=== PATIENT | female | born 1955 | race Caucasian/White ===

== ENCOUNTER → 2016-04-09 14:43 | Outpatient (CLI) | payer OTHER ==
[2015-07-01 12:08] VITALS: BMI 27.8
[~2016-04-09 14:43] MED LIST: ADVAIR 100/501 DISK INH; ALDACTONE25 MG PO; BAYER CHEWABLE81 MG PO; BENADRYL25 MG PO; COREG 3.1253.125 MG PO; CYMBALTA60 MG PO; LANTUS SOL100 UNIT/1 SC; LISINOPRIL5 MG PO; LYRICA100 MG PO; NEURONTIN600 MG PO; NITROSTAT0.4 MG SL; PHENERGAN25 M1 PO; PLAVIX75 MG PO; PRAVACHOL40 MG PO; PROTONIX40 MG PO; STOOL SOFTENER100 M1 PO; ULTRAM50 MG PO
== END | disposition home or self-care (01) ==
LOC: D.CT 14:43
DX: I70.212 Atherosclerosis of native arteries of extremities with intermittent claudication, left leg (principal)

== ENCOUNTER 2016-04-11 12:03 | Observation (INO) | payer OTHER ==
[~2016-04-11] VITALS: Ht 154.9 cm; Wt 74.7 kg
--- NOTE | ~2016-04-11 | HEMODYNAMI ---
PATIENT:JALEESA ADAM MEDICAL RECORD: [id number] : 53 [id number] ADMISSION DATE: 04/11/16 Generatedon:04/12/201614:09 Patient name: JALEESA ADAM Patient #: [id number] SSN: : 1955 Date of study: 04/12/2016 Page: Of Hemodynamic Procedure Report Patient Data Patient Demographics Procedure consent was obtained First Name: JALEESA Gender: Female Last Name: KIA : 1955 [facility] Initial: MALATHI Age: 60 year(s) Patient #: [id number] Race: Additional ID: [id number] Contact details Address: [address] [place] [address] rd State: [place] City: [place] Zip code: [address] Past Medical History History of disease Date Diagnosis Comments CAD Diabetes Allergies Allergen Reaction Date Comments Reported Other allergy 04/22/2015 Dilaudid Admission Admission Data Admission Date: 04/11/2016 Admission Time: 14:11 Room #: D.2114 Lab Results Lab Result Date: 04/12/2016 Lab Result Time: 0:00 Biochemistry Name Units Result Min Max BUN mg/dl 26 --(----)-* 7 18 Creatinine mg/dl 1 --(--*-)-- 0.6 1.3 CBC Name Units Result Min Max Hemoglobin g/dl 13.8 --(*---)-- 13.5 17.5 Procedure Procedure Types Cath Procedure Diagnostic Procedure LHC LHC w/Coronaries Peripheral Cath Diagnostic Procedure Cath Peripheral Four Vessel Arteriogram Procedure Description Procedure Date Procedure Date: 04/12/2016 Procedure Start Time: 13:51 Procedure End Time: 14:08 Procedure Staff Name Function Elijah Marvin MD Performing Physician Roxane Birch RT Scrub Mariama Hou RN Nurse Carolin Rutherford RT Monitor Tico Gomez RT Monitor Procedure Data Cath Procedure Fluoroscopy Diagnostic fluoroscopy Total fluoroscopy Time: 2.5 time: 2.5 min min Diagnostic fluoroscopy Total fluoroscopy dose: 144 dose: 144 mGy mGy Contrast Material Contrast Material Type Amount (ml) Isovue 300 108 Entry Location Entry Primary Successful Side Size Upsize Upsize Entry Closure Succes sful Closure Location (Fr) 1 (Fr) 2 (Fr) Remarks Device Remarks Femoral Right 5 Fr Exoseal artery Diagnostic catheters Device Type Used For End Catheter Placement Cordis 5Fr JL 4.0 Left Coronary Catheter (MP) Angiography Cordis 5Fr 3DRC Catheter Right Coronary (MP) Angiography Cordis 5Fr Pigtail LV Angiography Catheter (MP) Procedure Complications No complications Procedure Medications Medication Administration Route Dosage Oxygen NC 2 l/min Heparin Flush Bag added to field 2 bags (1000units/500ml NS) Lidocaine 2% added to field 20 Versed I.V. 1 mg Fentanyl I.V. 50 mcg Hemodynamics Rest HGB: 13.8 (g/dl) Heart Rate: 77 (bpm) Pressure Samples Time Site Value (mmHg) Purpose Heart Use Rate(bpm) 14:01 LV 116/19,22 EDP 76 14:02 AO 93/47(65) Pullback 48 Gradients Valve Time Site Site 2 Mean SEP/DFP Peak To Heart Use 1 (mmHg) (sec/min) Peak Rate (mmHg) (bpm) Aortic 14:02 LV AO 28 13 48 93/47(65) Calculations Valve P-P Mean Valve Index Valve Source Name Gradient Area Flow (cm2) Aortic 28 28 Snapshots Pre Cath Intra NCS Post Cath Vital Signs Time Heart Resp SPO2 NIBP (mmHg) Rhythm Pain Sedation Rate (ipm) (%) Status Level (bpm) 13:33:50 75 13 95 Measuring NSR 0 (11) 10(A) , No pain 13:34:22 87 19 95 137/72(103) NSR 0 (11) 10(A) , No pain 13:38:40 77 13 94 118/65(112) NSR 0 (11) 10(A) , No pain 13:43:40 86 15 95 Measuring NSR 0 (11) 10(A) , No pain 13:43:56 77 15 95 119/65(87) NSR 0 (11) 10(A) , No pain 13:48:18 80 16 95 114/59(88) NSR 0 (11) 9(A) , No pain 13:52:26 90 16 95 115/76(111) NSR 0 (11) 9(A) , No pain 13:56:38 83 16 97 115/69(106) NSR 0 (11) 9(A) , No pain 14:00:52 86 14 98 132/71(91) NSR 0 (11) 9(A) , No pain 14:05:14 85 15 98 107/56(92) NSR 0 (11) 9(A) , No pain Medications Time Medication Route Dose Verified Delivered Reason Notes Effec tiveness by by 13:32:10 Oxygen NC 2 Elijah Kenyonca Per l/min St. Kalyan Hou RN physician 13:32:19 Heparin Flush added 2 Eiljah Nava used for Bag to bags [facility] procedure (1000units/500ml field MD EASLEY NS) 13:32:27 Lidocaine 2% added 20ml Elijah Nvaa used for to vial [facility] procedure field MD EASLEY 13:46:07 Versed I.V. 1 mg Elijah Kenyonca for St. Kalyan Hou RN sedation 13:46:14 Fentanyl I.V. 50 Elijah Marieecca for mcg [address] Kalyan Hou RN sedation Procedure Log Time Note 13:20:27 Roxane Birch RT(R) sent for patient. Start room use. 13:30:03 Diagnostic Cath Status : Elective 13:30:34 Time tracking: Regular hours 13:30:38 Plan of Care:Hemodynamics will remain stable., Cardiac rhythm will remain stable., Comfort level will be maintained., Respiratory function will remain adequate., Patient/ family verbilizes understanding of procedure., Procedure tolerated without complication., Recovers from procedure without complications.. 13:30:54 Patient received from Med II to CCL 1 Alert and oriented. Tansferred to table in Supine position. 13:30:55 Warm blankets applied, and jeannine hugger turned on for patient comfort. 13:30:55 Correct patient and procedure confirmed by team. 13:30:57 Signed procedure consent form obtained from patient. 13:32:01 Vital chart was started 13:32:10 Oxygen 2 l/min NC was given by Mariama Hou RN; Per physician; 13:32:19 Heparin Flush Bag (1000units/500ml NS) 2 bags added to field was given by Elijah Marvin MD; used for procedure; 13:32:27 Lidocaine 2% 20ml vial added to field was given by Elijah Marvin MD; used for procedure; 13:33:48 ECG and BP/O2 sat monitors applied to patient. 13:35:10 Baseline sample Acquired. 13:35:29 Rhythm: sinus rhythm 13:35:30 Full Disclosure recording started 13:36:08 H&P Date Dictated: 04/11/2016 Within 30 days and on chart., H&P Addendum completed by physician on day of procedure. (MUST COMPLETE FOR ALL OUTPATIENTS). 13:36:10 Pre-op teaching completed and patient verbalized understanding. 13:36:11 Pre-procedure instructions explained to patient. 13:36:14 Family in waiting room. 13:36:15 Patient NPO since Midnight. 13:36:22 Is the patient allergic to Iodine/contrast media? No. 13:36:23 Was the patient premedicated? No 13:40:26 Is patient on blood thinner?No 13:40:29 Patient diabetic? Yes. 13:40:33 If diabetic: On Metformin? No 13:40:36 Previous problem with sedation/anesthesia? No ? 13:40:40 Snore? Yes 13:40:42 Sleep apnea? No 13:40:42 Deviated septum? No 13:40:43 Opens mouth fully? Yes 13:40:45 Sticks out tongue? No 13:40:48 Airway obstruction? No ? 13:40:55 Dentures? No ? 13:40:59 Pre procedure: right dorsailis pedis pulse 1+ Palpable, but thready & weak; easily obliterated 13:41:07 Patient pain scale 0/10 ?. 13:41:48 Lab Result : BUN 26 mg/dl 13:41:48 Lab Result : Creatinine 1 mg/dl 13:41:48 Lab Result : Hemoglobin 13.8 g/dl 13:41:52 Lab results completed and on chart. 13:41:56 Right groin area was prepped with chlora-prep and draped in sterile fashion 13:41:57 Alarms reviewed by R. N. 13:41:58 Sharps counted by scrub and verified by R.N. 13:42:28 Use device set Femoral Dx 13:42:29 Acist Syringe opened to sterile field. 13:42:29 Bag Decanter opened to sterile field. 13:42:30 Medline Cath Pack opened to sterile field. 13:42:31 Terumo 5Fr Hutchinson Sheath opened to sterile field. 13:42:31 St Blue 260cm J .035 wire opened to sterile field. 13:42:32 Acist Hand Control opened to sterile field. 13:42:33 Acist Manifold opened to sterile field. 13:42:33 Cordis Infinity 5Fr Multipack catheter opened to sterile field. 13:45:35 Physician arrived 13:45:35 --------ALL STOP TIME OUT------ 13:45:36 Final Timeout: patient, procedure, and site verified with staff and physician. All members of the team are in agreement. 13:45:38 Right groin site verified by team. 13:45:41 Physical assessment completed. ASA score P 2 - A patient with mild systemic disease as per Elijah Marvin MD. 13:45:44 Sedation plan: IV Moderate Sedation Versed, Fentanyl 13:46:07 Versed 1 mg I.V. was given by Mariama Hou RN; for sedation; 13:46:14 Fentanyl 50 mcg I.V. was given by Mariama Hou RN; for sedation; 13:50:32 Procedure started. 13:51:33 Local anesthetic to right femoral artery with Lidocaine 2% by Elijah Marvin MD.INITIAL ACCESS ONLY 13:51:41 A 5 Fr sheath was inserted into the Right Femoral artery 13:53:21 A Cordis 5Fr JL 4.0 Catheter (MP) was advanced over the wire and used for Left Coronary Angiography. 13:56:13 LCA angiography performed. 13:57:00 Catheter removed. 13:57:16 A Cordis 5Fr 3DRC Catheter (MP) was advanced over the wire and used for Right Coronary Angiography. 13:57:54 RCA angiography performed. 13:58:43 Bilateral carotid angiography performed. 13:59:26 Procedure type changed to Cath procedure, Diagnostic procedure, LHC, LHC w/Coronaries, Peripheral Cath Diagnostic Procedure, Cath Peripheral, Four Vessel Arteriogram 14:00:06 Catheter removed. 14:00:14 A Cordis 5Fr Pigtail Catheter (MP) was advanced over the wire and used for LV Angiography. 14:01:27 LV angiography performed. 14:01:41 LV gram done using GASCA 14:01:45 Injector settings: Ml/sec: 5, Volume: 15, 14:01:47 LV hemodynamics recorded. 14:01:56 Catheter removed. 14:02:12 EF : 55 % 14:02:36 Catheter removed. 14:03:58 Cordis 5Fr Exoseal opened to sterile field. 14:04:07 Sheath removed intact; hemostasis achieved with Exoseal to the Right Femoral artery. 14:04:09 Procedure ended.(Physican Out) 14:06:30 Fluoroscopy time 02.50 minutes. 14:06:39 Flurop Dose total: 144 14:06:39 Fluoroscopy dose: 144 mGy 14:06:55 Contrast amount:Isovue 300 108ml. 14:06:56 Sharps counted by scrub and verified by R.N. 14:06:59 Insertion/operative site no bleeding no hematoma. 14:07:02 Post-op/insertion site Right Femoral artery dressed using a 4 x 4 and Tegaderm. 14:07:09 Post right femoral artery:stable 14:07:11 Post Procedure Pulses reassessed and unchanged 14:07:23 Post procedure: right dorsailis pedis pulse 1+ Palpable, but thready & weak; easily obliterated. 14:07:34 Post procedure rhythm: sinus rhythm 14:07:36 Post procedure instruction explained to patient.Patient verbalizes understanding. 14:08:01 Procedure and supply charges have been captured, reviewed, submitted and are correct. 14:08:09 Procedure Complication : No complications 14:08:12 Vital chart was stopped 14:08:13 See physician's report for complete and final results. 14:08:15 Report given to PCU. 14:08:18 Patient transfered to PCU with Bed. 14:08:20 Procedure ended. 14:08:20 Full Disclosure recording stopped 14:08:25 End room use (Document Last) Device Usage Item Name Manufacture Quantity Catalog Hospital Part Current Minimal Lot # / Number Charge Number Stock Stock Serial# Code Acist Acist 1 14947 [id number] [id number] [id number] 20 Syringe Medical Systems Inc Bag Microtek 1 2002S 009017 11513 347356 5 Giftly Inc. Medline Cardinal 1 [id number] 864644 41153 428354 5 3D Hubs [facility] 1 [id number] 163256 990585 [address] Blue St Blue 1 894255 557569 572778 784222 30 260cm J .035 wire Acist Acist 1 35084 707192 723707 347077 5 Hand Medical Control Systems Inc Acist Acist 1 55376 639232 901862 816177 5 Manifold Medical Systems Inc Cordis Cardinal 1 [id number] 192137 40154 011701 30 [facility] 5Fr Multipack catheter Cordis Cardinal 1 [id number] 5 5Fr JL Health 4.0 Catheter (MP) Cordis Cardinal 1 [id number] 5 5Fr 3DRC Health Catheter (MP) Cordis Cardinal 1 976323 5 5Fr Health Pigtail Catheter (MP) Cordis Cardinal 1 EX500 560291 841318 317285 10 5Fr Health Exoseal Signature Audit [place] Stage Time Signature Unsigned Intra-Procedure 04/12/2016 Tico Gomez 2:09:02 PM RT(R) Signatures Monitor : Carolin Rutherford RT Signature : Date : Time : Monitor : Tico Gomez RT Signature : Date : Time : [address] [address]
[~2016-04-11 12:03] MED LIST changes: -BENADRYL25 MG PO; -LYRICA100 MG PO; -PHENERGAN25 M1 PO; -STOOL SOFTENER100 M1 PO; -ULTRAM50 MG PO
[2016-04-11 12:40] LABS: BASOPHILS 0.3 % (0.0-2.0); EOSINOPHILS 3.2 % (0-7); HEMATOCRIT 40.4 % (36.0-48.0); HEMOGLOBIN 13.9 g/dL (12-16); IMMATURE GRANULOCYTES 0.4 % (0-5); LYMPHOCYTES 23.7 % (15-50); MCHC 34.4 g/dL (31.0-37.0); MCV 87.1 fL (80.0-100.0); MEAN PLATELET VOLUME 9.8 fL (7.4-10.4); MONOCYTES 14.6 % (2-11); NEUTROPHILS 57.8 % (40-80); PLATELET COUNT 184 10x3/uL (130-400); RBC 4.64 10x6/uL (4.00-5.40); RDW 13.5 % (11.5-14.5); WBC 7.6 10x3/uL (4.8-10.8)
[2016-04-11 12:54] LABS: ALBUMIN 3.9 g/dL (3.4-5.0); ALKALINE PHOSPHATASE 119 U/L (46-116); ALT (SGPT) 26 U/L (10-68); BILIRUBIN - TOTAL 0.28 mg/dL (0.2-1.3); CALC OSMOLALITY 283 mosm/kg (275-300); CALCIUM 9.6 mg/dL (8.5-10.1); CARBON DIOXIDE 24.9 mmol/L (21.0-32.0); CHLORIDE - SERUM 100 mmol/L (98-107); CREATININE - SERUM 0.9 mg/dL (0.6-1.3); POTASSIUM - SERUM 4.7 mmol/L (3.5-5.1); PROTEIN - SERUM 7.9 g/dL (6.4-8.2); SODIUM 137 mmol/L (136-145); UREA NITROGEN 21 mg/dL (7-18); eGFR NON AFRICAN AMERICAN 67 mL/min (90-120)
[2016-04-11 12:58] LABS: GLUCOSE 220 mg/dL (74-106)
[2016-04-11 13:04] LABS: CREATINE KINASE 132 UL (21-215)
[2016-04-11 13:05] LABS: TROPONIN-I < 0.017 ng/mL (0.000-0.060)
--- NOTE | 2016-04-11 14:51 | NUR ---
ARRIVE TO ROOM VIA BED FROM ER. REPORT FROM EUSEBIA HOLGUIN FROM ER. ALERT AND ORIENTED X4. COMPLAINS OF SYNCOPAL EPISODES STARTING TODAY. DENIES SOB OR PAIN AT THIS TIME. VITAL SIGNS STABLE. AMBULATES TO BED FROM STRETCHER GAIT STEADY. IV LT HAND SL. REFUSE SCDs. AMBULATORY. CONTINUE ADMISSION PROCESS. BED LOCKED AND LOW. CALL LIGHT IN REACH. TWO SIDERAILS UP.
[2016-04-11] MEDS ORDERED: LYRICA100 MG PO (15:01)
[2016-04-11] MEDS ORDERED: PHENERGAN25 M1 PO (15:02)
[2016-04-11 16:03] VITALS: BP 141/66
[2016-04-11 18:21] VITALS: BP 133/64; Ht 154.9 cm; Wt 74.7 kg
--- NOTE | 2016-04-11 18:28 | NUR ---
ALERT AND ORIENTED X4. RESTING IN BED. AT BEDSIDE. COMPLAINS OF LT LOWER LEG PAIN. ORDER NORCO 10 Q4PRN PER . CONSENTS FOR PER DIEM RN SIGNED ON CHART. SINUS RHYTHM 80bpm ON TELEMETRY. CONTINUE PLAN OF CARE AND SAFETY PRECAUTIONS. PREPARE SHIFT CHANGE REPORT.
[2016-04-11 20:00] VITALS: BP 114/54
--- NOTE | 2016-04-11 23:30 | NUR ---
INITIAL ROUNDS COMPLETED AT 1914 HRS. PT ASKNG FOR PAIN MEDS. NORCO 10/ GIVEN AT 0 HRS FOR C/O L LEG PAIN. NEG JEANETH'S. PT STATES THEY DID A CT ON IT BUT SHE DIDN'T KNOW THE RESULTS. AT 1954 PT STATED SHE WAS HAVING SEVERE CP 8/10. BP 166/81. HR 81 SR. NITRO 0.4MG SL GIVEN. REASSESSED AT 2004 AND PT STATED CP NOW 5/10 AND EASING OFF. BP 119/58. RECHECKED AT 2034 AND PT STATED NO CP. ASSESSMENT COMPLETED AT 2054 HRS. VSS. SR PER CM HR 86. IV TO LFA SL. LUNGS CTA. PM FSBS 346. PT ALSO STATED LANYTUS ORDER WRONG. DR DONAHUE NOTIFIED AT 2154 HRS. INFORMED OF PT'S BS OF 346 AND CORRECT LANTUS USAGE. NEW ORDERS RECEIVED AND NOTED. PM MEDS GIVEN. SNACK SERVED. PT AWARE NPO AFTER MIDNIGHT FOR AM C. PT CURRENTLY WATCHING TV. DENIES ANY DISCOMFORT. WILL CONTINUE TO MONITOR. SR UP X2, CALL LIGHT WITHIN REACH.
[2016-04-12] VITALS: BP 111/54
--- NOTE | 2016-04-12 01:37 | NUR ---
NORCO 10/325 PO GIVEN FOR C/O L LEG PAIN. WILL CONTINUE TO MONITOR.
[2016-04-12 04:00] VITALS: BP 102/56
--- NOTE | 2016-04-12 04:14 | NUR ---
PT RESTING WITH EYES CLOSED. RESP EVEN AND REGULAR. SR UP X2, CALL LIGHT WITHIN REACH.
[2016-04-12 05:46] LABS: BASOPHILS 0.3 % (0.0-2.0); EOSINOPHILS 5.2 % (0-7); HEMATOCRIT 39.8 % (36.0-48.0); HEMOGLOBIN 13.8 g/dL (12-16); IMMATURE GRANULOCYTES 0.3 % (0-5); LYMPHOCYTES 31.5 % (15-50); MCH 30.5 pg (26.0-34.0); MCHC 34.7 g/dL (31.0-37.0); MCV 88.1 fL (80.0-100.0); MEAN PLATELET VOLUME 9.6 fL (7.4-10.4); MONOCYTES 12.8 % (2-11); NEUTROPHILS 49.9 % (40-80); PLATELET COUNT 177 10x3/uL (130-400); RBC 4.52 10x6/uL (4.00-5.40); RDW 13.4 % (11.5-14.5); WBC 6.7 10x3/uL (4.8-10.8)
[2016-04-12 06:15] LABS: ANION GAP 13.3 mmol/L (8-16); CALCIUM 8.8 mg/dL (8.5-10.1); CARBON DIOXIDE 28.1 mmol/L (21.0-32.0); POTASSIUM - SERUM 4.4 mmol/L (3.5-5.1)
--- NOTE | 2016-04-12 06:15 | NUR ---
VSS THROUGHUOT NIGHT. NO CP SINCE 1999 HRS. PT STATED NORCO HELPED L LEG PAIN. AM FSBS 294. INSULIN HELD PT NPO FOR AM LHC. NEEDS MET; WILL CONITNUE TO MONITOR.
--- NOTE | 2016-04-12 07:41 | HP ---
PATIENT: JALEESA ADAM MEDICAL RECORD: [id number] ACCOUNT: [id number] LOCATION:[address] : [birth year] ADMISSION DATE: 04/11/16 HISTORY AND PHYSICAL EXAMINATION Admission History and Physical HISTORY OF PRESENT ILLNESS: A 60-year-old female, presented to the Emergency Room with acute onset of chest pain, 8/10, substernal, crushing with reported brief loss of consciousness. PAST MEDICAL HISTORY: Significant for extensive cardiovascular disease as well as peripheral vascular disease, also history of hypertension, insulin-dependent diabetes mellitus, angina, multiple surgeries including revascularization of the lower extremity, multiple stents, cholecystectomy with complications, hysterectomy. ALLERGIES: No reported drug allergies. HOME MEDICATIONS: Listed as: Aspirin 81 mg daily, Coreg 3.125 mg b.i.d. She had been on Plavix, but she has been off of Plavix since her last cardiology appointment. She is also on Lyrica 100 mg twice daily, pravastatin 40 mg daily, Aldactone 25 mg daily, Nitrostat p.r.n., lisinopril 5 mg daily, Protonix 40 mg daily, Lantus 80 units at bedtime, ____ NovoLog 30 units 3 times a day with meals, Cymbalta 60 mg daily, Plavix as listed, but she reports she has not taken it since her last cardiology appointment. Her high tension tester is Dr. Mina Marvin. She has a primary care physician in [place]. [facility] per cardiology request. FAMILY HISTORY: Significant for extensive cardiovascular disease in multiple family members. REVIEW OF SYSTEMS: GENERAL: No acute change in weight or appetite. HEENT: No cephalgia, visual changes, tinnitus, epistaxis or dysphagia. CARDIOVASCULAR: Acute onset of crushing substernal chest pain with reported syncopal event. PULMONARY: Denies hemoptysis, denies night sweats. GASTROINTESTINAL: Denies hematemesis, hematochezia or melena. GENITOURINARY: Denies dysuria, denies change in frequency. MUSCULOSKELETAL: No acute changes. ENDOCRINE: Denies polyuria, polydipsia, or polyphagia. PHYSICAL EXAMINATION: VITAL SIGNS: Temperature 98.9, blood pressure is 137/81, heart rate 90, respirations 15, O2 sats 92% room air. GENERAL: Alert, oriented, presently comfortable after receiving nitroglycerin and supplemental oxygen. HEENT: Head is normocephalic, atraumatic. Eyes: Pupils are equally round and reactive to light and accommodation. Extraocular muscles are intact. Conjunctiva was not injected. Ears: Canals patent, TMs are intact. Nose: Nares patent without drainage. Throat: No erythema, no exudates. NECK: Supple. No lymphadenopathy. HEART: Regular rate and rhythm. No S3, S4, no rub. LUNGS: Clear to auscultation bilaterally. Breathing is nonlabored. HISTORY AND PHYSICAL [id number] JALEESA ADAM ABDOMEN: Soft, nontender. Bowel sounds all 4 quadrants. EXTREMITIES: Present times 4, no edema. NEUROLOGICAL: Cranial nerves II-XII grossly intact. No focal deficits. SKIN: Warm, dry. No rash. LABORATORY DATA: EKG shows normal sinus rhythm with some minimal nonspecific ST changes. CBC: White count 7.6, hemoglobin 13.9, hematocrit 40.4, platelets 184. Chemistry shows sodium of 137, potassium 4.7, chloride 100, bicarbonate 24.9, BUN 21, creatinine 0.9, glucose 220. Alkaline phosphatase 119, AST 15, ALT 26. CK is 132. CK-MB is 1.0. Troponin less than 0.017. Chest x-ray, no acute cardiopulmonary disease. ASSESSMENT AND PLAN: 1. Unstable angina with reported syncopal event. The patient is admitted. Cardiology consulted, Dr. Rajan. Serial enzymes. 2. Diabetes mellitus. We will continue home medications. 3. Hypertension. Continue home medications. 4. Depression. Continue home medications. 5. Hyperlipidemia. Continue pravastatin. Supportive care. TRANSINT:[id number] Voice Confirmation ID: [id number] DOCUMENT ID: [id number] ARACELI DONAHUE DO at 0741 CC: [id number] DICTATION DATE: 04/11/16 1427 TONGUE AND GROOVE MACHINE SETTER: 04/11/[address] [facility] [address] [place] [address]
[2016-04-12 08:16] VITALS: BP 113/57
[2016-04-12 11:37] VITALS: BP 121/52
--- NOTE | 2016-04-12 12:50 | NUR ---
ALERT AND ORIENTED X4. RESTING IN BED. DENIES SOB. COMPLAINS OF LT LEG PAIN. PAIN MANAGEMENT CONTINUED. PRE-OP COMPLETE FOR RUBY RAILS DEVELOPER. CONSENTS SIGNED ON CHART. AT BEDSIDE. SINUS RHYTHM 75bpm ON TELEMETRY. CONTINUE PLAN OF CARE. BED LOCKED AND LOW. CALL LIGHT IN REACH.
--- NOTE | 2016-04-12 13:25 | NUR ---
TAKEN TO [place] VIA BED. CONTINUE PLAN OF CARE AND SAFETY PRECAUTIONS.
--- NOTE | 2016-04-12 14:30 | NUR ---
ARRIVE BACK TO ROOM VIA BED FROM INDUSTRIAL DESIGN ENGINEER. SEDATED. AROUSES EASILY TO STIMULI. AT BEDSIDE. CLEAN CATH. REMAIN FLAT UNTIL 1630. SINUS RHYTHM 68bpm ON TELEMETRY. PULSE +2 BILATERALLY. RT GROIN DRESSING CLEAN DRY INTACT. FREE FROM BLEEDING. FREE FROM HEMATOMA. LT HAND IV INFUSING NS ORDERED. BP-106/62, R-16, O2-92% 4L NC. INCREASE O2 TO 5L NC. O2 SAT IMPROVE 98%. CONTINUE TO MONITOR. BED LOCKED AND LOW. CALL LIGHT IN REACH. TWO SIDERAILS UP.
[2016-04-12 15:53] VITALS: BP 127/70
--- NOTE | 2016-04-12 16:35 | NUR ---
ALERT AND ORIENTED X4. 2HOURS COMPLETE. HOB 30 DEGREES. NO BLEEDING. NO HEMATOMA. AT BEDSIDE. CONTINUE PLAN OF CARE. SINUS RHYTHM 86bpm. BP-117/72. DENIES SOB. EXPRESSES CONCERNS REGUARDING LT LEG PAIN. CONTINUE PAIN MANAGEMENT. BED LOCKED AND LOW. CALL LIGHT IN REACH. TWO SIDERAILS UP.
[2016-04-12 20:00] VITALS: BP 122/48
[2016-04-13] VITALS: BP 108/47
[2016-04-13 05:38] LABS: BASOPHILS 0.3 % (0.0-2.0); EOSINOPHILS 4.8 % (0-7); HEMATOCRIT 38.3 % (36.0-48.0); HEMOGLOBIN 12.5 g/dL (12-16); IMMATURE GRANULOCYTES 0.4 % (0-5); LYMPHOCYTES 28.3 % (15-50); MCH 29.1 pg (26.0-34.0); MCHC 32.6 g/dL (31.0-37.0); MCV 89.3 fL (80.0-100.0); MEAN PLATELET VOLUME 9.8 fL (7.4-10.4); MONOCYTES 10.8 % (2-11); NEUTROPHILS 55.4 % (40-80); PLATELET COUNT 166 10x3/uL (130-400); RBC 4.29 10x6/uL (4.00-5.40); RDW 13.4 % (11.5-14.5); WBC 7.8 10x3/uL (4.8-10.8)
[2016-04-13 06:01] LABS: ANION GAP 12.4 mmol/L (8-16); CALCIUM 8.5 mg/dL (8.5-10.1); CREATININE - SERUM 0.9 mg/dL (0.6-1.3); POTASSIUM - SERUM 4.4 mmol/L (3.5-5.1)
[2016-04-13 07:58] VITALS: BP 150/73
--- NOTE | 2016-04-13 09:30 | OP ---
PATIENT NAME: JALEESA ADAM MEDICAL RECORD: [id number] :53 LOCATION:D.M2 D.2114 ADMISSION DATE:04/11/16 SURGEON: CHELY SOTO MD DATE OF OPERATION: 04/12/2016 PROCEDURE: Left heart catheterization, selective coronary angiography, right femoral artery approach. CATHETERS: A 5-Czech sheath, 5/4 left and right Sadia, 5/4 pig. The procedure was well tolerated. The patient returned to patterson, sheath removed. ExoSeal device placed. FINDINGS: Left ventriculography in the 30-degree GASCA view: Normal wall motion and normal systolic function. CORONARY ANATOMY: Left main: Left main is free of disease. LAD: LAD in the area of previous stenting is widely patent. [place] vessel shows no progression of [place]wale[place] disease. CIRCUMFLEX: The area of previous stenting is widely patent. No progression of nanwalek disease. RIGHT CORONARY ARTERY: Dominant artery, gives rise to PDA, free of disease. The area of previous stenting is widely patent. IMPRESSION: Normal systolic function. No restenosis. No evidence of progression of nanwalek disease. TRANSINT:[id number] Voice Confirmation ID: [id number] DOCUMENT ID: [id number] CHELY SOTO MD at 0930 CC: [id number] DICTATION DATE: 04/12/16 140 CRISIS INTERVENTION SPECIALIST: 04/12/164 ADM IN [facility] [id number] [place] [address]
--- NOTE | 2016-04-13 09:30 | OP ---
PATIENT NAME: JALEESA ADAM MEDICAL RECORD: [id number] :53 LOCATION:D.M2 D.2114 ADMISSION DATE:04/11/16 SURGEON: CHELY SOTO MD DATE OF OPERATION: 04/12/2016 PROCEDURE: Four vessel arteriography. DESCRIPTION: Using indwelling sheath, both common carotids were cannulated selectively. Findings are as follows: RIGHT: Right common carotid smooth-walled vessel without significant stenosis. Right external carotid smooth-walled vessels without significant stenosis. Right internal carotid smooth-walled vessel without significant stenosis. LEFT: Left common carotid smooth-walled vessel, no significant stenosis. Left internal carotid smooth-walled vessel without significant stenosis. Left external carotid smooth-walled vessel without significant stenosis. IMPRESSION: No significant stenosis. TRANSINT:[id number] Voice Confirmation ID: [id number] DOCUMENT ID: [id number] CHELY SOTO MD at 0930 CC: [id number] DICTATION DATE: 04/12/16 1409 SOCIAL MEDIA EDITOR: 04/12/16 2155 ADM IN [facility] [address] [id number]
[2016-04-13 12:18] VITALS: BP 129/55
[2016-04-13 16:16] VITALS: BP 118/59
[2016-04-13] MEDS ORDERED: ULTRAM50 MG PO (17:27)
--- NOTE | 2016-04-13 18:44 | NUR ---
ALERT AND ORIENTED X4. DC LT HAND IV TIP INTACT. DISCHARGE INSTRUCTIONS GIVEN VERBALLY AND WRITTEN. DISCHARGE PAPERS SIGNED ON CHART. WRITTEN SCRIPT FOR ULTRAM NOT SIGNED BY . CALLED SADDLE AND HARNESS MAKER PHYSICIAN. INSTRUCTED TO TELL PATIENT TO COME BY OFFICE IN THE MORNING. ESCORT TO RIDE VIA WHEELCHAIR. REMAIN FREE FROM INJURY.
[2016-04-23] MEDS ORDERED: STOOL SOFTENER100 M1 PO (10:34)
[2016-04-23] MEDS ORDERED: BENADRYL25 MG PO (10:35)
== END 2016-04-13 18:57 | disposition home or self-care (01) ==
LOC: D.ER 12:03 → D.M2 14:11 → OBSVTIME 14:11 → D.M2 14:11 → D.SDCHOLD 04-13 15:18 → D.M2 04-13 18:57
PROVIDERS: Family Medicine; Internal Medicine Cardiovascular Disease; ADMIT Family Medicine
DX: I25.110 Atherosclerotic heart disease of native coronary artery with unstable angina pectoris (principal); Z95.5 Presence of coronary angioplasty implant and graft; R55 Syncope and collapse; E78.5 Hyperlipidemia, unspecified; I10 Essential (primary) hypertension; I73.9 Peripheral vascular disease, unspecified; E11.9 Type 2 diabetes mellitus without complications; Z79.4 Long term (current) use of insulin; F32.9 Major depressive disorder, single episode, unspecified

== ENCOUNTER 2016-04-26 05:06 | Day surgery (SDC) | payer OTHER ==
[2016-04-23 12:25] LABS: APPEARANCE CLEAR (CLEAR); BILIRUBIN NEGATIVE (NEGATIVE); COLOR YELLOW (YELLOW); GLUCOSE 1000 mg/dL (NEGATIVE); KETONE NEGATIVE (NEGATIVE); LEUKOCYTE ESTERASE TRACE (NEGATIVE); NITRITE NEGATIVE (NEGATIVE); PROTEIN TRACE mg/dL (NEGATIVE); UROBILINOGEN NORMAL (NORMAL)
[2016-04-23 12:26] LABS: BACTERIA MODERATE /hpf (NONE SEEN); EPITHELIAL CELLS 0-5 /hpf (0-5); MUCUS <1+ /lpf (NONE SEEN); RED CELLS - URINE 0-5 /hpf (0-5); WHITE CELLS - URINE 0-5 /hpf (0-5); YEAST OCC /hpf (NONE SEEN)
[2016-04-23 12:29] LABS: HEMATOCRIT 41.4 % (36.0-48.0); HEMOGLOBIN 14.2 g/dL (12-16); MCH 29.8 pg (26.0-34.0); MCHC 34.3 g/dL (31.0-37.0); MCV 86.8 fL (80.0-100.0); MEAN PLATELET VOLUME 9.8 fL (7.4-10.4); RBC 4.77 10x6/uL (4.00-5.40); RDW 13.4 % (11.5-14.5)
[2016-04-23 12:37] LABS: APTT 23.7 SECONDS (22.8-39.4); INR 1.03 (0.85-1.17); PROTIME 13.3 SECONDS (11.6-15.0)
[2016-04-23 12:44] LABS: ALKALINE PHOSPHATASE 121 U/L (46-116); ALT (SGPT) 26 U/L (10-68); BILIRUBIN - TOTAL 0.37 mg/dL (0.2-1.3); CALC OSMOLALITY 283 mosm/kg (275-300); CALCIUM 9.5 mg/dL (8.5-10.1); CHLORIDE - SERUM 102 mmol/L (98-107); CREATININE - SERUM 0.8 mg/dL (0.6-1.3); GLUCOSE 178 mg/dL (74-106); POTASSIUM - SERUM 4.5 mmol/L (3.5-5.1); PROTEIN - SERUM 8.2 g/dL (6.4-8.2); SODIUM 139 mmol/L (136-145); UREA NITROGEN 19 mg/dL (7-18); eGFR NON AFRICAN AMERICAN 77 mL/min (90-120)
--- NOTE | 2016-04-24 13:38 | HP ---
PATIENT: JALEESA ADAM [facility] MEDICAL RECORD: [id number] ACCOUNT: [id number] LOCATION[facility] : 54 ADMISSION DATE: 04/26/16 HISTORY AND PHYSICAL EXAMINATION NameJALEESA ADAM (60yo, F) ID# [id number]. Date/Time04/16/2016 10:91BHYGN1954Va [facility] Dept.NPP[facility] ClinicProviderEDRAMO TURPIN MDInsuranceMed Primary: HUMANA - GOLD (MEDICARE REPLACEMENT/ADVANTAGE - PFFS) Insurance # : [id number] Referring Provider Name : RAYMUNDO ZELAYA Employer Name : [employer]\\ Prescription: ARGSDIR - Member is eligible. Chief Complaint atherosclerosis of arteries of extremities Patient's Care Team Referring Provider (): RAYMUNDO ZELAYA: [address] [place] [phone], , Primary Care Provider: PETRA MALIK DO: [address] [address], , Transport Technician: CHELY SOTO MD Patient's Pharmacies [facility] (ERX): [address] [facility] [id number], , Vitals BP:122/82 sitting R arm 04/16/2016 10:26 am 100/80 sitting R arm 04/16/2016 10:27 amHR:88R/R 04/16/2016 10:27 amHt:5 ft 1 in 04/16/2016 10:26 amWt:154 lbs 04/16/2016 10:24 amBMI:29.1 04/16/2016 10:26 amAllergies Reviewed Allergies ADHESIVE TAPEMedications Reviewed Medications Aspir-81 81 mg tablet,delayed release Take 1 tablet(s) every day by oral route.04/14/16 enteredKat Wilsoncarvedilol 3.125 mg yqcmkb77/11/17 [facility] CenterLANDBAYDULoxetine 60 mg capsule,delayed puetxqr27/26/16 filledReCyte Therapeuticsgabapentin 600 mg axvzup80/11/16 filledArgGroupsite SystemsLantus 100 unit/mL subcutaneous ysqwagzj07/23/17 filledArgLANDBAYlisinopril 5 mg eczbet26/11/16 filledArgGroupsite SystemsLyrica 100 mg purwdqs21/01/17 filledArgLANDBAYnitroglycerin 0.4 mg sublingual /17/16 filledReCyte TherapeuticsNovoLIN N InnoLet 100 unit/mL (3 mL) subcutaneous insulin pen Inject by subcutaneous route.04/16/16 enteredCindy Brownpravastatin 40 mg jqwnki59/18/16 filledReCyte Therapeuticspromethazine 25 mg irmxjc62/18/17 filledReCyte Therapeuticsrosuvastatin 10 mg gpmdgi96/21/16 filledArgLANDBAYspironolactone 25 mg thohbt20/18/16 filledHonor[facility] Medical CenterLANDBAYProblems Reviewed Problems Atherosclerosis of arteries of the extremities - Onset: 04/16/2016 Peripheral arterial occlusive disease - Onset: 04/14/2016 Family History Discussed Family History Brother- Heart diseaseMother- Heart diseaseFather- Heart diseaseSister- Heart diseaseSocial History Discussed Social History Cardiology HISTORY AND PHYSICAL [id number] JALEESA ADAM Family history of heart disease?: Y Smoking Status: Former smoker High Cholesterol: Y High blood pressure: Y Exercise level: None Overweight: Y Diabetes: Y General stress level: Low Alcohol intake: Occasional Diet: Regular Surgical History Reviewed Surgical History Other - PTCA/stent Removal of gallbladder Hysterectomy/revise vagina Angioplasty - left leg coronary artery stenting, INGREDIENT HANDLER History (not configured) Obstetric History Reviewed Obstetric History Past Medical History Discussed Past Medical History Angina: Y Angioplasty (balloon): Y Coronary Artery Disease: Y Diabetes: Y Heart Disease: Y Heart stents: Y Hyperlipidemia: Y Hypertension: Y Mitral Valve Prolapse: Y Pain in legs when walking: Y Peripheral Vascular Disease (PVD): Y Documents for Discussion N/A Screening None recorded. HPI Peripheral Vascular Disease Reported by patient. Location: calf; foot; "left leg hurts 1/2 block" Quality: cramping; burning; aching; weakness Severity: interferes with normal activity Onset/Timing: intermittent Context: during walking Alleviating Factors: rest claudication lower extremities bilaterally left greater than the right ROS Patient reports exercise intolerance but reports no fever, no night sweats, no significant weight gain, and no significant weight loss; severe claudication left leg approximately 33 feet. She reports muscle aches, muscle weakness, and HISTORY AND PHYSICAL [id number] JALEESA ADAM arthralgias/joint pain but reports no back pain and no swelling in the extremities. She reports no dry eyes, no irritation, and no vision change. She reports no difficulty hearing and no ear pain. She reports no frequent nosebleeds and no nose/sinus proble ms. She reports no sore throat, no bleeding gums, no snoring, no dry mouth, no mouth ulcers, no oral abnormalities, and no teeth problems. She reports no jugular vein distension and no swollen glands. She reports no chest pain, no arm pain on exertion, no shortness of breath when walking, no shortness of breath when lying down, no palpitations, and no known heart murmur. She reports no cough, no wheezing, no shortness of breath, and no coughing up blood. She reports no abdominal pain, no vomiting, normal a p petite, no diarrhea, not vomiting blood, no nausea, and no constipation. She reports no incontinence, no difficulty urinating, no hematuria, and no increased frequency. She reports no abnormal mole, no jaundice, and no rashes. She reports no loss of consc i ousness, no weakness, no numbness, no seizures, no dizziness, and no headaches. She reports no depression, no sleep disturbances, feeling safe in relationship, and no alcohol abuse. She reports no fatigue. She reports no swollen glands and no bruising. Sh e reports no runny nose, no sinus pressure, no itching, no hives, and no frequent sneezing. ROS as noted in the HPI Physical Exam Patient is a 60-year-old female. Constitutional: General Appearance well nourished and developed and healthy-appearing. Level of Distress NAD. Ambulation ambulating normally. Cardiovascular: Apical Impulse not displaced or no thrill. Heart Auscultation normal s1 and s2; no murmurs, rubs, or gallops; and RRR. Arterial Pulses no abdominal aorta bruits, femoral bruits, or popliteal bruits; popliteal not palpable (left leg) and dorsalis pedis not palpable (left leg); and 2+ bilateral, carotid 2+ bilateral, and femoral 2+ bilateral; good dorsalis pedis pulse on the right. Edema no edema or varicosities. Lungs: Repiratory Effort no d yspnea. Percussion no hyperresonance or dullness or flatness. Auscultation no wheezing, rhonchi, or rales / crackles and breathing sounds normal, good air movement, and CTA except as noted. Abdomen: Bowl Sounds normal. Inspection and Palpation no tenderne ss, guarding, masses, or rebound tenderness and soft and non-distended. Liver non-tender and no hepatomegaly. Spleen non-tender and no splenomegaly. Hernia none palpable. Musculoskeletal System: Gait And Stance normal gait and stance. Digits and Nails normal nails and no cyanosis. Joints, Bones, and Muscles limited ROM. Neurologic: Cranial Nerves grossly intact. Reflexes DTRs 2+ bilaterally throughout. Sensation grossly intact. Lymph Nodes: Lymph Nodes no cervical LAD, supraclavicular LAD, axillary LAD, or inguinal LAD. Eyes: Lids and Conjunctivae no discharge or pallor and non-injected. Pupils PERRLA. Cornea grossly intact. EOM EOMI. Lens clear. Sclera non-icteric. Neck: Neck no masses, enlarged lymph nodes, or carotid bruits and supple and trachea midline. Thyroid no enlargement or nodules and non-tender. Skin: Inspection and Palpation no rash, lesions, ulcers, jaundice, or abnormal nevi. HISTORY AND PHYSICAL [id number] JALEESA ADAM Assessment / Plan 1. Intermittent claudication due to atherosclerosis of [place] artery of limb I70.213: Atherosclerosis of [place] arteries of extremities with intermittent claudication, bilateral legs 2. Coronary arteriosclerosis in [place] artery I25.10: Atherosclerotic heart disease of [place] coronary artery without angina pectoris Discussion Notes severe claudication left lower extremity Roughly 1 year ago underwent atherectomy and drug coated balloon She now has recurrent restenosis bilaterally left greater than the right. I have discussed her disease process with her and her in detail as well as the alternative methods of treatment. We discussed endovascular and open repair of her left superficial femoral artery including the expected benefits and risk which i ncluded bleeding, infection, stroke, loss of limb and .she understands all the above and wishes to proceed with planned surgery. Return to Office Deonna Turpin MD for Surgery at [facility] SCHEDULE on 04/26/2016 at 07:30 AM DEONNA TURPIN MD at 1338 CC: [id number] DICTATION DATE: 04/16/15 1030 FRONT MAKER: DANYA 04/20/16 [address] [place] [id number] [place] [address]
[~2016-04-26] VITALS: Ht 154.9 cm; Wt 69.9 kg
[~2016-04-26 05:06] MED LIST changes: +BENADRYL25 MG PO; +LYRICA100 MG PO; +PHENERGAN25 M1 PO; +STOOL SOFTENER100 M1 PO; +ULTRAM50 MG PO
[2016-04-26 05:38] VITALS: BP 121/66; Ht 154.9 cm; Wt 69.9 kg
[2016-04-26] MEDS ORDERED: PLAVIX75 MG PO (09:52)
--- NOTE | 2016-04-26 10:01 | NUR ---
1000 NSR RATE 92 BP 138/60 CHEST PAIN IS DENIED. RIJ WITH DRESSING CDI NS AND 2 AMPS OF BICARB INFUSING ON PUMP AT 125 CC/HR. O2 AT 2 LITERS SAT 99% ANGIOSEAL R/GROIN CDI NO BLEEDING NO HEMATOMA NOTED. INSTURCTED PATIENT TO KEEP RLE STRAIGHT WITH HEAD FLAT ON PILLOW. CRITICORE CATH IN PLACE WITH CLEAR YELLOW URINE OUTPUT 66 WILL MONITOR
--- NOTE | 2016-04-26 10:21 | NUR ---
PATIENT COMPLAINS OF BACK PAIN AND RATES PAIN AT 10 TRAMADOL GIVEN ORAL DIRECTED WITH SIPS OF WATER. BP 139/62 HR 81 ANGIOSEAL R/GROIN CDI NO BLEEDING NO HEMATOMA NOTED INSTRUCTED PATIENT TO KEEP HEAD FLAT ON PILLOW WITH RLE STRAIGHT.
--- NOTE | 2016-04-26 10:45 | NUR ---
1045 BP 135/56 HR NSR RATE 82 CHEST PAIN IS DENIED. ANGIOSEAL R/GROIN CDI NO BLEEDING NO HEMATOMA NOTED. INSTRUCTED PATIENT TO KEEP HEAD FLAT ON PILLOW WITH RLE STRAIGHT. C/O OF PAIN TO LEFT LEG MOANING LOUD. PAIN IS RATED AT 10. TRAMADOL ON BOARD. EDUCATED PATIENT ON REPROFUSION PAIN TO LEFT LEG. WARM BLANKETS PROVIDED WITH FOOT MASSAGED FOR DIVERSION AT SIDE. CIRITCORE CATH WITH 79 CC CLEAR YELLOW URINE
--- NOTE | 2016-04-26 10:54 | NUR ---
DR TURPIN AT BEDSIDE TALKING TO VSS
--- NOTE | 2016-04-26 11:12 | NUR ---
1115 VSS WITH PATIENT C/O OF PAIN MOANING LOUD. AT SIDE HOLDING HAND. ANGIOSEAL R/GROIN CDI NO BLEEDING NO HEMATOMA NOTED URIEN OUTPUT AT 143 HR 83 B[ 133/52
--- NOTE | 2016-04-26 12:05 | NUR ---
1205 FSBS 225 HR 81 BP 135/51. PATIENT RESTING QUIETLY WITH NO DISTRESS NOTED. ANGIOSEAL R/GROIN CDI NO BLEEDING NO HEMATOMA NOTED PULSES PRESENT AND PALPABLE. URINE OUTPUT AT 149
--- NOTE | 2016-04-26 18:05 | NUR ---
1550-CENTRAL LINE D'C BY IGOR LAWS, NO BLEEDING OR HEMATOMA 1600-KATE D'C WITH BALLOON INTACT, 84 CC CLEAR YELLOW URINE, RIGHT GROIN CDI, NO HEMATOMA OR BLEEDING NOTED. UP WITH ASSIST 1615-AMBULATING HALLWAY, DENIES NEEDS 1630- BROUGHT FISH SANDWICH- PT AUGIE, ENCOURAGE PO FLUIDS. 1700-B/P 111/52, UP IN HALLWAY, ATTEMPT TO VOID-UNSUCCESSFUL AT THIS TIME. DENIES NEEDS 1740-TO REST ROOM- VOID WITHOUT DIFFICULTY 1800-D'C HOME WITH IN PRIVATE CAR, WRITTEN AND VERBAL INSTRUCTIONS GIVEN.
--- NOTE | 2016-05-01 10:49 | OP ---
PATIENT NAME: JALEESA ADAM MEDICAL RECORD: [id number] :53 LOCATION:D.OPS ADMISSION DATE: SURGEON: DEONNA ANDREW MD DATE OF OPERATION: 04/26/2016 SURGEON: Deonna Andrew MD. ANESTHESIA: General, Dr. Persaud. OPERATION PERFORMED: 1. Right retrograde sheath placements, 4-Czech, 5-Czech, 6-Czech long. 2. Right retrograde external iliac arteriogram. 3. Left selective common femoral artery arteriogram. 4. Left selective superficial femoral arteriogram. 5. Selective left popliteal arteriogram. 6. Drug-coated balloon angioplasty of the left superficial femoral artery. 7. Left superficial femoral artery SMART stent placement 6 x 100. PREOPERATIVE DIAGNOSIS: Severe claudication of lower extremities bilaterally. POSTOPERATIVE DIAGNOSIS: High-grade stenosis left superficial femoral artery with claudication. INDICATION FOR OPERATION: Claudication. FINDINGS OF THE OPERATION: 1. Right external iliac arteriogram demonstrates diffuse atherosclerosis; however, no stenotic lesions. 2. Left selective common femoral artery arteriogram demonstrates good flow into the profunda and proximal superficial femoral artery. 3. Left selective superficial femoral arteriogram demonstrates high-grade stenosis at the adductor canal for approximately 80 mm. 4. Left popliteal arteriogram with runoff difference demonstrates good 3-vessel runoff at the popliteal artery. 5. Status post drug-coated balloon angioplasty 5 x 150 is a good result; however, suboptimal status post stent placement 6 x 100 SMART stent demonstrates excellent result with no residual stenosis. FLUOROSCOPY TIME: 7 minutes 39 seconds. Isovue 145 mL. One drug-coated Lutonix balloon 5-Czech. ESTIMATED BLOOD LOSS: Less than 10 cc. DESCRIPTION OF PROCEDURE: After informed consent, adequate preoperative medication evaluation, the patient was brought to the operating room, placed on the table in the supine position. After induction of general endotracheal anesthesia and application of appropriate monitoring devices, both groin and left leg were prepped and draped in a sterile field, utilizing Betadine scrub, alcohol, and Betadine solution. A Betadine-impregnated drape was also used. A micropuncture was made of the right common femoral artery retrogradely and a 4-Czech sheath placed. This was exchanged for a 5-Czech sheath. A retrograde arteriogram demonstrated the above findings with no significant stenotic lesions OPERATIVE REPORT [id number] JALEESA ADAM utilizing a rim catheter and Glidewire, the left superficial femoral artery was accessed and a long 6-Czech sheath was placed in the common femoral artery and arteriogram demonstrated good flow into the profunda and superficial femoral artery. The sheath was then directed into the superficial femoral artery. Arteriogram demonstrated severe stenosis at the adductor canal, greater than 90% and the stenotic area was a length of approximately 80 mm. A Glidewire was manipulated through the lesion into the popliteal artery, 0.035 Quick-Cross placed into the popliteal artery and arteriogram demonstrated good 3-vessel runoff below the knee to the foot. The Glidewire was reintroduced and a Lutonix drug-coated balloon 5 x 150 was placed in the popliteal and superficial femoral artery and inflated for 3 minutes. Arteriogram demonstrated much improved flow through the area, but suboptimal. A SMART stent 6 x 100 was then placed in the superficial femoral artery, post-dilated with the 5-Czech balloon proximally in the superficial femoral artery and through the stent into the popliteal artery. Arteriogram demonstrated good runoff through the superficial femoral artery stent and popliteal artery into the foot. The wires and catheter sheaths were removed. A 6-Czech Angio-Seal was deployed in the right groin. The patient was given a calculated dose of protamine to reverse the heparin given as the first sheath was placed. Sterile dressings were applied. The patient tolerated the procedure well and was transferred to the company laborer recovery in satisfactory condition. TRANSINT:[id number] Voice Confirmation ID: [id number] DOCUMENT ID: [id number] DEONNA ANDREW MD at 1049 CC: [id number] DICTATION DATE: 04/26/16957 SENIOR SALES EXECUTIVE: 04/26/16 1141 [facility] 04/26/16 [place] [id number]
== END 2016-04-26 18:00 | disposition home or self-care (01) ==
LOC: D.SDCHOLD 05:06 → D.OPS 05:06 → EDSTATUS 07:30 → D.SDCHOLD 07:30 → D.OPS 18:00
PROVIDERS: Internal Medicine Cardiovascular Disease
DX: I70.212 Atherosclerosis of native arteries of extremities with intermittent claudication, left leg (principal)

== ENCOUNTER 2016-05-03 18:35 | Emergency (ER) | payer OTHER ==
[2016-04-26 05:38] VITALS: BMI 29.1
[2016-05-03 22:19] LABS: BASOPHILS 0.3 % (0.0-2.0); EOSINOPHILS 3.9 % (0-7); HEMATOCRIT 31.7 % (36.0-48.0); HEMOGLOBIN 10.3 g/dL (12-16); IMMATURE GRANULOCYTES 0.4 % (0-5); LYMPHOCYTES 29.2 % (15-50); MCHC 32.5 g/dL (31.0-37.0); MCV 89.3 fL (80.0-100.0); MEAN PLATELET VOLUME 9.4 fL (7.4-10.4); MONOCYTES 12.8 % (2-11); NEUTROPHILS 53.4 % (40-80); PLATELET COUNT 203 10x3/uL (130-400); RBC 3.55 10x6/uL (4.00-5.40)
== END 2016-05-03 23:42 | disposition home or self-care (01) ==
LOC: D.ER 18:35
PROVIDERS: Physician Assistant
DX: I77.0 Arteriovenous fistula, acquired (principal); E11.9 Type 2 diabetes mellitus without complications; Z79.4 Long term (current) use of insulin; K21.9 Gastro-esophageal reflux disease without esophagitis

== ENCOUNTER → 2016-05-04 09:41 | Outpatient (CLI) | payer OTHER ==
[2016-04-26 05:38] VITALS: BMI 29.1
== END | disposition home or self-care (01) ==
LOC: D.CT 09:41
DX: I77.0 Arteriovenous fistula, acquired (principal)

== ENCOUNTER 2016-10-06 14:24 | Observation (INO) | payer OTHER ==
[~2016-10-06] VITALS: Ht 154.9 cm; Wt 71.2 kg
[2016-10-06 15:14] LABS: BASOPHILS 0.3 % (0-2); EOSINOPHILS 4.7 % (0-7); HEMATOCRIT 39.3 % (36.0-48.0); HEMOGLOBIN 13.6 g/dL (12-16); IMMATURE GRANULOCYTES 0.4 % (0-5); LYMPHOCYTES 28.5 % (15-50); MCHC 34.6 g/dL (31.0-37.0); MCV 86.6 fL (80.0-100.0); MEAN PLATELET VOLUME 9.5 fL (7.4-10.4); NEUTROPHILS 58.1 % (40-80); PLATELET COUNT 180 10x3/uL (130-400); RBC 4.54 10x6/uL (4.00-5.40); WBC 6.9 10x3/uL (4.8-10.8)
[2016-10-06 15:31] LABS: ALBUMIN 3.5 g/dL (3.4-5.0); ALKALINE PHOSPHATASE 131 U/L (46-116); ALT (SGPT) 24 U/L (10-68); BILIRUBIN - TOTAL 0.31 mg/dL (0.2-1.3); CALC OSMOLALITY 280 mosm/kg (275-300); CALCIUM 8.6 mg/dL (8.5-10.1); CARBON DIOXIDE 25.4 mmol/L (21.0-32.0); CHLORIDE - SERUM 99 mmol/L (98-107); CREATININE - SERUM 1.1 mg/dL (0.6-1.3); POTASSIUM - SERUM 4.2 mmol/L (3.5-5.1); PROTEIN - SERUM 7.6 g/dL (6.4-8.2); SODIUM 135 mmol/L (136-145); UREA NITROGEN 19 mg/dL (7-18); eGFR NON AFRICAN AMERICAN 53 mL/min (90-120)
[2016-10-06 15:32] LABS: GLUCOSE 260 mg/dL (74-106)
[2016-10-06 15:48] LABS: CHOL - HDL RATIO 4.1 ratio (2.3-4.1); CHOLESTEROL, TOTAL 164 mg/dL (0-200); CKMB 0.9 U/L (0.0-3.6); CREATINE KINASE 194 UL (21-215); HDL CHOLESTEROL 40 mg/dL (32-96); LDL CHOLESTEROL 86 mg/dL (0-100); LDL-HDL RATIO 2.2 ratio (1.5-3.5); TRIGLYCERIDE 192 mg/dL (30-200)
[2016-10-06 15:54] LABS: TROPONIN-I < 0.017 ng/mL (0.000-0.060)
[2016-10-06 19:00] VITALS: BP 139/58
--- NOTE | 2016-10-06 19:08 | NUR ---
RECEIVED FROM ER VIA WHEELCHAIR, TELEMTRY PLACE ON, IV-L.HAND, 02-2L, ADMISSION HISTORY COMPLETE, BED IS LOW, SRX2, CALL LIGHT IN REACH, WILL CONTINUE PLAN OF CARE
[2016-10-06] MEDS ORDERED: NOVOLOG100 U/M1 (19:16)
[2016-10-07 00:20] VITALS: Ht 154.9 cm; Wt 71.2 kg
[2016-10-07 01:39] VITALS: BP 145/65
--- NOTE | 2016-10-07 03:26 | NUR ---
PT SLEEPING, BED IS LOW, SRX2, CALL LIGHT IN REACH, CONSENT SIGNED, WILL CONTINUE PLAN OF CARE
--- NOTE | 2016-10-07 04:00 | NUR ---
WELL SERVICING RIG OPERATOR AT BEDSIDE TO OBTAIN VITALS, CALL LIGHT IN REACH. WILL CONTINUE WITH PLAN OF CARE.
[2016-10-07 05:32] VITALS: BP 119/53
--- NOTE | 2016-10-07 08:05 | NUR ---
ASSESSMENT DONE. DENIES NEEDS
[2016-10-07 09:36] VITALS: BP 114/57
--- NOTE | 2016-10-07 09:45 | NUR ---
DC GIVEN TO PT
--- NOTE | 2016-10-07 09:49 | NUR ---
PER PATIENT VERBAL - REFUSING IMDUR AND WILL CONTINUE NITROGLYCERIN NEEDED. REFUSED 4 WEEK F/U APPT. PT ADVISED SHE SPOKE WITH ROD/SHAILESH WITH CARDIOLOGY REGARDING THESE ISSUES.
--- NOTE | 2016-10-07 09:54 | NUR ---
UP IN CHAIR WITH CALL LIGHT IN REACH. WILL MONITOR NEEDS.
--- NOTE | 2016-10-07 10:10 | NUR ---
DC HOME PER PERSONAL CAR
== END 2016-10-07 10:11 | disposition home or self-care (01) ==
LOC: D.OPS 14:24 → D.ER 14:24 → D.M2 16:32 → OBSVTIME 16:32 → EDSTATUS 18:40 → D.M2 18:41 → D.OPS 18:41 → EDSTATUS 22:15 → D.OPS 10-07 10:11 → D.M2 10-07 10:11
PROVIDERS: Emergency Medicine; ADMIT Internal Medicine Interventional Cardiology
DX: I25.118 Atherosclerotic heart disease of native coronary artery with other forms of angina pectoris (principal); Z95.5 Presence of coronary angioplasty implant and graft; I10 Essential (primary) hypertension; E78.5 Hyperlipidemia, unspecified; E11.9 Type 2 diabetes mellitus without complications; F32.9 Major depressive disorder, single episode, unspecified

== ENCOUNTER 2017-06-19 14:29 | Observation (INO) | payer MEDICARE ==
[~2017-06-19] VITALS: Ht 154.9 cm; Wt 87.7 kg
--- NOTE | ~2017-06-19 | OP ---
PATIENT NAME: JALEESA ADAM MEDICAL RECORD: [id number] :54 [facility] ADMISSION DATE:06/19/17 SURGEON: CHELY SOTO MD DATE OF OPERATION: 06/20/2017 PROCEDURE: Left heart catheterization, selective coronary angiography, right femoral artery approach. CATHETERS: A 5-Hungarian sheath, 5/4 left and right Sadia, 5/4 pig. The procedure was well tolerated. The patient returned to the patterson, sheath removed. ExoSeal device. FINDINGS: Left ventriculography in 30-degree GASCA view, normal wall motion, normal systolic function. CORONARY ANATOMY: 1. Left main: Left main was free of disease. 2. LAD: An area of previous stenting is widely patent. No evidence of restenosis. No progression of [place] disease. 3. Circumflex: Circumflex stent is widely patent. No evidence of restenosis. No progression of [place] disease. 4. Right coronary artery: Right coronary artery is a dominant artery, gives rise to PDA, patent stent, no progression of [place] disease. IMPRESSION: No restenosis, no progression. TRANSINT:[id number] Voice Confirmation ID: [id number] DOCUMENT ID: [id number] CHELY SOTO MD at 1337 CC: [id number] DICTATION DATE: 06/20/17 1028 IS CONSULTANT: 06/20/17 1208 DIS IN 06/20/17 [facility] [address] [place] [address]
--- NOTE | ~2017-06-19 | HEMODYNAMI ---
PATIENT:JALEESA ADAM MEDICAL RECORD: [id number] : 53 LOCATION:[facility] D.2108 ADMISSION DATE: 06/19/17 Generatedon:06/20/201710:28 Patient name: JALEESA ADAM Patient #: [id number] SSN: : 1955 Date of study: 06/20/2017 Page: Of Hemodynamic Procedure Report Patient Data Patient Demographics Procedure consent was obtained First Name: JALEESA Gender: Female Last Name: KIA : 1955 [facility] Initial: MALATHI Age: 62 year(s) Patient #: [id number] Race: Additional ID: [id number] Contact details Address: [address] [place] [address] rd State: [place] City: [place] Zip code: [address] Past Medical History History of disease Date Diagnosis Comments CAD Diabetes Allergies Allergen Reaction Date Comments Reported Other allergy 04/22/2015 Dilaudid Adhesive tape 06/20/2017 Admission Admission Data Admission Date: 06/19/2017 Admission Time: 16:47 Room #: D.2108 Lab Results Lab Result Date: 06/20/2017 Lab Result Time: 0:00 Biochemistry Name Units Result Min Max BUN mg/dl 19 --(----)*- 7 18 Creatinine mg/dl 1 --(--*-)-- 0.6 1.3 CBC Name Units Result Min Max Hemoglobin g/dl 13.6 --(*---)-- 13.5 17.5 Procedure Procedure Types Cath Procedure Diagnostic Procedure LHC LH w/Coronaries Sedation Charges Moderate Sedation up to 15 minutes Procedure Description Procedure Date Procedure Date: 06/20/2017 Procedure Start Time: 10:16 Procedure End Time: 10:28 Procedure Staff Name Function Elijah Moralez MD Performing Physician Charissa Wright RT Monitor Walker Pulliam RT Scrub Jozef Morales RN Nurse Procedure Data Cath Procedure Fluoroscopy Diagnostic fluoroscopy Total fluoroscopy Time: 0.7 time: 0.7 min min Diagnostic fluoroscopy Total fluoroscopy dose: 179 dose: 179 mGy mGy Contrast Material Contrast Material Type Amount (ml) Isovue 300 60 Entry Location Entry Primary Successful Side Size Upsize Upsize Entry Closure Succes sful Closure Location (Fr) 1 (Fr) 2 (Fr) Remarks Device Remarks Femoral Right 5 Fr Exoseal artery Estimated blood loss: 5 ml Diagnostic catheters Device Type Used For End Catheter Placement MULTIPACK JL 4.0 5Fr Procedure catheter MULTIPACK 3DRC 5Fr Procedure catheter MULTIPACK Pigtail 5 Fr Procedure catheter Procedure Complications No complications Procedure Medications Medication Administration Route Dosage 0.9% NaCl I.V. 100 ml/hr Oxygen etCO2 Nasal cannula 2 l/min Heparin Flush Bag added to field 2 bags (1000units/500ml NS) Lidocaine 2% added to field 20 Versed I.V. 1 mg Fentanyl I.V. 50 mcg Versed I.V. 1 mg Fentanyl I.V. 50 mcg Hemodynamics Rest HGB: 13.6 (g/dl) Heart Rate: 90 (bpm) Pressure Samples Time Site Value (mmHg) Purpose Heart Use Rate(bpm) 10:22 LV 129/18,20 Snapshot 99 Gradients Valve Time Site Site Mean SEP/DFP Peak To Heart Use 1 2 (mmHg) (sec/min) Peak Rate (mmHg) (bpm) Aortic 10:22 LV AO 88 Snapshots Pre Cath Intra NCS Post Cath Vital Signs Time Heart Resp SPO2 etCO2 NIBP (mmHg) Rhythm Pain Sedation Rate (ipm) (%) (mmHg) Status Level (bpm) 10:00:33 86 19 97 35.2 120/52(87) NSR 0 (11) 10(A) , No pain 10:05:26 91 18 96 23.9 125/60(89) NSR 0 (11) 10(A) , No pain 10:10:21 93 15 96 16.4 125/60(83) NSR 0 (11) 10(A) , No pain 10:15:16 91 14 96 20.2 123/55(77) NSR 0 (11) 10(A) , No pain 10:20:07 96 17 92 47.1 114/55(86) NSR 0 (11) 10(A) , No pain 10:24:54 100 16 93 41.1 130/66(102) NSR 0 (11) 10(A) , No pain Medications Time Medication Route Dose Verified Delivered Reason Notes Eff ectiveness by by 9:59:32 0.9% NaCl I.V. 100 Jozef Jozef Per ml/hr Carmen Morales physician RN RN 9:59:42 Oxygen etCO2 2 Jozef Jozef Per Nasal l/min Carmen Morales physician cannula RN RN 9:59:53 Heparin Flush added 2 Jozef Jozef used for Bag to bags Lorigan Carmen procedure (1000units/500ml field RN RN NS) 10:00:06 Lidocaine 2% added 20ml Jozef Jozef for local to vial Lorigan Lorigan anesthetic field RN RN 10:07:57 Versed I.V. 1 mg Jozef Jozef for Lorigan Lorigan sedation RN RN 10:08:09 Fentanyl I.V. 50 Jozef Jozef for mcg Lorigan Lorigan sedation RN RN 10:17:56 Versed I.V. 1 mg Jozef Jozef for Lorigan Lorigan sedation RN RN 10:18:02 Fentanyl I.V. 50 Jozef Jozef for mcg Lorigan Lorigan sedation RN boom boss Log Time Note 9:33:45 Diagnostic Cath status Elective 9:33:46 Time tracking: Regular hours (M-F 7:00 - 5:00) 9:33:50 Plan of Care:Hemodynamics will remain stable., Cardiac rhythm will remain stable., Comfort level will be maintained., Respiratory function will remain adequate., Patient/ family verbilizes understanding of procedure., Procedure tolerated without complication., Recovers from procedure without complications.. 9:33:52 Jozef Morales RN sent for patient. Start room use. 9:34:27 H&P Date Dictated: 06/19/2017 Within 30 days and on chart.. 9:51:11 Patient received from Med II to CCL 1 Alert and oriented. Tansferred to table in Supine position. 9:51:12 Warm blankets applied, and jeannine hugger turned on for patient comfort. 9:51:13 Correct patient and procedure confirmed by team. 9:51:14 Signed procedure consent form obtained from patient. 9:51:15 ECG and BP/O2 sat monitors applied to patient. 9:51:16 Pre-procedure instructions explained to patient. 9:51:17 Pre-op teaching completed and patient verbalized understanding. 9:51:18 Family in patients room. 9:51:20 Patient NPO since Midnight. 9:59:24 Vital chart was started 9:59:25 Baseline sample Acquired. 9:59:28 Rhythm: sinus rhythm 9:59:29 Full Disclosure recording started 9:59:32 0.9% NaCl 100 ml/hr I.V. was administered by Jozef Morales RN; Per physician; 9:59:34 Patient allergic to Adhesive tape 9:59:39 Is the patient allergic to Iodine/contrast media? No. 9:59:40 Is patient on blood thinner?Yes 9:59:42 Oxygen 2 l/min etCO2 Nasal cannula was administered by Jozef Morales RN; Per physician; 9:59:42 ACC The patient was administered the following blood thiners within the last 24 hours: ACCPlavix 9:59:43 Patient diabetic? Yes. 9:59:44 If diabetic: On Metformin? No 9:59:49 Patient not . Patient is over age 55. 9:59:51 Previous problem with sedation/anesthesia? No ? 9:59:53 Heparin Flush Bag (1000units/500ml NS) 2 bags added to field was administered by Jozef Morales RN; used for procedure; 9:59:53 Snore? No 9:59:54 Sleep apnea? No 9:59:55 Deviated septum? No 9:59:56 Opens mouth fully? Yes 9:59:56 Sticks out tongue? Yes 9:59:58 Airway obstruction? No ? 10:00:00 Dentures? No ? 10:00:06 Lidocaine 2% 20ml vial added to field was administered by Jozef Morales RN; for local anesthetic; 10:00:09 Pre procedure: right dorsailis pedis pulse 2+ Normal; easily identifiable; not easily obliterated 10:00:15 IV patent on arrival in left hand with 0.9% NaCl at [facility]. 10:00:34 Lab Result : BUN 19 mg/dl 10:00:34 Lab Result : Creatinine 1 mg/dl 10:00:34 Lab Result : Hemoglobin 13.6 g/dl 10:00:38 Lab results completed and on chart. 10:00:42 Right groin area was prepped with chlora-prep and draped in sterile fashion 10:00:43 Alarms reviewed by RJacquelyn N. 10:00:43 Sharps counted by scrub and verified by CamilaJacquelynNaJcquelyn 10:06:33 --------ALL STOP TIME OUT------ 10:06:34 Final Timeout: patient, procedure, and site verified with staff and physician. All members of the team are in agreement. 10:06:36 Right groin site verified by team. 10:06:38 Physical assessment completed. ASA score P 2 - A patient with mild systemic disease as per Elijah Moralez MD. 10:06:44 Sedation plan: IV Moderate Sedation Medication:Versed, Fentanyl 10:07:57 Versed 1 mg I.V. was administered by Jozef Morales RN; for sedation; 10:08:09 Fentanyl 50 mcg I.V. was administered by Jozef Morales RN; for sedation; 10:10:52 Zero performed for pressure channel P1 10:11:00 Zero performed for pressure channel P1 10:11:12 Zero performed for pressure channel P1 10:11:52 Use device set Femoral Dx 10:11:53 ACIST Syringe (93393) opened to sterile field. 10:11:54 Bag Decanter (2002S) opened to sterile field. 10:11:55 ACIST Hand Control (76423) opened to sterile field. 10:11:56 ACIST Manifold (19315) opened to sterile field. 10:11:57 Tegaderm 4 x 4 (1626W) opened to sterile field. 10:12:46 Medline Cath Pack ([id number]) opened to sterile field. 10:12:47 DIAGNOSTIC WIRE .035 260cm J wire (561741) opened to sterile field. 10:12:48 DIAGNOSTIC Multipack 5Fr catheter set ([id number]) opened to sterile field. 10:16:53 Procedure started. 10:16:58 Local anesthetic to right femoral artery with Lidocaine 2% by Elijah Moralez MD.INITIAL ACCESS ONLY 10:17:44 A 5 Fr sheath was inserted into the Right Femoral artery 10:17:56 Versed 1 mg I.V. was administered by Jozef Morales RN; for sedation; 10:18:02 Fentanyl 50 mcg I.V. was administered by Jozef Morales RN; for sedation; 10:18:07 A MULTIPACK JL 4.0 5Fr catheter was advanced over the wire and used for Procedure. 10:19:00 LCA angiography performed. 10:19:31 Catheter removed. 10:19:55 A MULTIPACK 3DRC 5Fr catheter was advanced over the wire and used for Procedure. 10:20:33 RCA angiography performed. 10:20:47 Catheter removed. 10::55 A MULTIPACK Pigtail 5 Fr catheter was advanced over the wire and used for Procedure. 10:22:38 LV gram done using GASCA 10::39 LV hemodynamics recorded. 10::42 Injector settings: Ml/sec: 10, Volume: 20, 10:22:48 EF : 55 % 10:22:49 Catheter removed. 10:22:50 EXOSEAL 5Fr (EX500) opened to sterile field. 10:23:09 Sheath removed intact; hemostasis achieved with Exoseal to the Right Femoral artery. 10:23:30 Procedure ended.(Physican Out) 10:23:41 Fluoroscopy time 00.70 minutes. 10:23:44 Flurop Dose total: 179 10::44 Fluoroscopy dose: 179 mGy 10:23:52 Contrast amount:Isovue 300 60ml. 10:23:54 Sharps counted by scrub and verified by R.N. 10:23:58 Post-op/insertion site Right Femoral artery dressed using a 4 x 4 and Tegaderm. 10:24:02 Post procedure: right dorsailis pedis pulse 2+ Normal; easily identifiable; not easily obliterated. 10:24:05 Post-procedure physical assessment completed. ASA score P 2 - A patient with mild systemic disease as per Elijah Moralez MD. 10:24:08 Post procedure rhythm: unchanged. 10:24:48 Estimated blood loss: 5 ml 10:24:49 Post procedure instruction explained to patient.Patient verbalizes understanding. 10:24:49 Patient needs reinforcement of post procedure teaching. 10:26:04 Procedure type changed to Cath procedure, Diagnostic procedure, LHC, LHC w/Coronaries, Sedation Charges, Moderate Sedation up to 15 minutes 10:27:27 Procedure and supply charges have been captured, reviewed, submitted and are correct. 10:27:30 Procedure Complication : No complications 10:27:32 Vital chart was stopped 10:27:38 See physician's report for complete and final results. 10:27:39 Report given to Pre/Post Procedure Room. 10::43 Patient transfered to Pre/Post Procedure Room with Bed. 10:28:03 Procedure ended. 10:28:03 Full Disclosure recording stopped 10:28:06 End room use (Document Last) Device Usage Item Name Manufacture Quantity Catalog Hospital Part Current Minimal L ot# / Number Charge Number Stock Stock Serial# Code ACIST Acist 1 41151 [id number] [id number] 20 Syringe Medical (22441) Systems Inc Bag Microtek 1 2001S 179198 14073 148144 5 Decanter Medical Inc. (2001S) ACIST Hand Acist 1 00188 741223 433876 036071 5 Control Medical (35611) Systems Inc ACIST Acist 1 30475 839484 933489 653450 5 Manifold Medical (50212) Systems Inc Tegaderm 4 3M 1 1626W 623700 984910 921100 5 x 4 (1626W) Medline Cardinal 1 [id number] 524697 57869 990514 5 Cath Pack Health ([id number]) DIAGNOSTIC St Blue 1 839028 519975 058868 901782 30 WIRE .035 260cm J wire (404525) DIAGNOSTIC Cardinal 1 [id number] 068945 66420 106696 30 Multipack Health 5Fr catheter set (VN7003) MULTIPACK Cardinal 1 [id number] 5 JL 4.0 5Fr Health catheter MULTIPACK Cardinal 1 212710 5 3DRC 5Fr Health catheter MULTIPACK Cardinal 1 167633 5 Pigtail 5 Health Fr catheter EXOSEAL 5Fr Cardinal 1 EX500 827837 586540 687251 10 (EX500) Health Signature Audit Baxter Stage Time Signature Unsigned Intra-Procedure 06/20/2017 Charissa Wright 10:28:23 AM RT(R) Signatures Monitor : Charissa Wright Signature : RT Date : Time : [facility] [address] [place] [address]
--- NOTE | ~2017-06-19 | CN ---
PATIENT NAME:JALEESA ADAM MEDICAL RECORD: [id number] : 53 LOCATION:[facility] ADMIT DATE: 06/19/17 ACCOUNT: [id number] CONSULTING PHYSICIAN: CHELY SOTO MD REFERRING PHYSICIAN: CHELY SOTO MD DATE OF CONSULTATION: 06/20/2017 HISTORY OF PRESENT ILLNESS: A 62-year-old lady with systemic vasculopathy, status post lower extremity intervention, onset of angina yesterday at restoration, progressed with nausea, diaphoresis, some dyspnea, partially relieved to nitroglycerin. Enzymes negative so far. She is admitted for further evaluation. PAST MEDICAL HISTORY: Includes: 1. History of hypertension. 2. Hyperlipidemia. 3. Coronary artery disease. 4. Peripheral vascular disease. ALLERGIES: ADHESIVE TAPE. MEDICATIONS: Include Plavix 75 every day, carvedilol 3.125 b.i.d., lisinopril 2.5 every day, Spironolactone 25 every day, Crestor 20 every day, aspirin 81 every day, Cymbalta 60 every day, insulin per scale. SOCIAL HISTORY: , does smoke less than a pack a day, nondrinker. No set exercise program, does stay active. Easily takes care of all of her ADLs. REVIEW OF SYSTEMS: The patient reports easy bruising but reports no swollen glands. The patient reports no fever, no night sweats, no significant weight gain, no significant weight loss. No significant exercise tolerance. The patient reports no dry eyes, no irritation, no vision change. Patient reports no difficulty hearing and no ear pain. Patient reports no frequent nose bleeds or nose and sinus problems. Patient reports on arm pain on exertion. No shortness of breath while lying down. No history of heart murmur. Patient reports no cough, no wheezing or coughing up blood. Patient reports no abdominal pain, no vomiting. Normal appetite. No diarrhea and not vomiting blood. No nausea and no constipation. Patient reports no incontinence. No difficulty urinating. No hematuria. No increased frequency. Patient reports no muscle aches. No weakness, no arthralgias, no back pain. No swelling of the extremities. Patient reports no abnormal mole, no jaundice, no rashes. Reports no loss of consciousness. No weakness and no numbness. No seizures, dizziness, or headaches. The patient reports no depression, no sleep disturbance, feeling safe in a relationship and no alcohol abuse. Patient reports on fatigue. Reports no runny nose or sinus pressure. No itching, no hives, and no frequent sneezing. PHYSICAL EXAMINATION: GENERAL: Pleasant female in no acute distress. VITAL SIGNS: Blood pressure 130/45, pulse 90 and regular. HEENT: Normocephalic, atraumatic. NECK: No JVD or bruit. HEART: Regular. LUNGS: Lung lovett, good air excursion. ABDOMEN: Soft, nontender. CONSULT REPORT [id number] JALEESA ADAM EXTREMITIES: Pulses actually well preserved, 2+. There is no edema. NEUROLOGIC: Grossly intact. DIAGNOSTIC DATA: ECG shows T-wave inversion inferolaterally, unchanged from previous. IMPRESSION: Acute coronary syndrome. PLAN: For angiography, intervention based on the above. TRANSINT:[id number] Voice Confirmation ID: [id number] DOCUMENT ID: [id number] CHELY SOTO MD at 1337 CC: [id number] DICTATION DATE: 06/20/17 0736 PILOT: 06/20/17 1127 DIS IN 06/20/17 [place] [id number] [place] [id number]
[~2017-06-19 14:29] MED LIST changes: +NOVOLOG100 U/M1
[2017-06-19 14:51] LABS: BASOPHILS 0.1 % (0-2); EOSINOPHILS 1.4 % (0-7); HEMATOCRIT 40.3 % (36.0-48.0); HEMOGLOBIN 13.6 g/dL (12-16); IMMATURE GRANULOCYTES 0.4 % (0-5); LYMPHOCYTES 11.2 % (15-50); MCH 29.9 pg (26.0-34.0); MCHC 33.7 g/dL (31.0-37.0); MCV 88.6 fL (80.0-100.0); MEAN PLATELET VOLUME 9.5 fL (7.4-10.4); MONOCYTES 10.4 % (2-11); NEUTROPHILS 76.5 % (40-80); PLATELET COUNT 158 10x3/uL (130-400); RBC 4.55 10x6/uL (4.00-5.40); RDW 13.6 % (11.5-14.5); WBC 13.9 10x3/uL (4.8-10.8)
[2017-06-19 15:30] LABS: ALBUMIN 3.9 g/dL (3.4-5.0); ALKALINE PHOSPHATASE 141 U/L (46-116); ALT (SGPT) 21 U/L (10-68); BILIRUBIN - TOTAL 0.68 mg/dL (0.2-1.3); CALC OSMOLALITY 276 mosm/kg (275-300); CALCIUM 8.9 mg/dL (8.5-10.1); CARBON DIOXIDE 23.9 mmol/L (21.0-32.0); CHLORIDE - SERUM 99 mmol/L (98-107); GLUCOSE 229 mg/dL (74-106); POTASSIUM - SERUM 4.5 mmol/L (3.5-5.1); PROTEIN - SERUM 7.8 g/dL (6.4-8.2); SODIUM 134 mmol/L (136-145); UREA NITROGEN 19 mg/dL (7-18); eGFR NON AFRICAN AMERICAN 59 mL/min (90-120)
[2017-06-19 15:40] LABS: CHOL - HDL RATIO 3.2 ratio (2.3-4.1); CHOLESTEROL, TOTAL 177 mg/dL (0-200); CKMB 0.4 U/L (0.0-3.6); CREATINE KINASE 90 UL (21-215); HDL CHOLESTEROL 56 mg/dL (32-96); LDL CHOLESTEROL 105 mg/dL (0-100); LDL-HDL RATIO 1.9 ratio (1.5-3.5); PRO BNP 85 pg/mL (0-125); TRIGLYCERIDE 83 mg/dL (30-200)
[2017-06-19 15:44] LABS: TROPONIN-I < 0.017 ng/mL (0.000-0.060)
[2017-06-19 20:00] VITALS: BP 139/59
[2017-06-19 22:02] VITALS: BP 132/59; Ht 154.9 cm; Wt 87.7 kg
[2017-06-19] MEDS ORDERED: CRESTOR5 MG PO (22:15)
[2017-06-19] MEDS ORDERED: CRESTOR20 MG PO (22:17)
[2017-06-19] MEDS ORDERED: NEURONTIN600 MG PO (22:18)
[2017-06-20 01:00] VITALS: BP 127/62
[2017-06-20 03:24] LABS: APPEARANCE CLEAR (CLEAR); COLOR YELLOW (YELLOW); SPECIFIC GRAVITY 1.015 (1.005-1.020)
[2017-06-20 03:25] LABS: BILIRUBIN NEGATIVE (NEGATIVE); GLUCOSE 250 mg/dL (NEGATIVE); KETONE NEGATIVE (NEGATIVE); NITRITE NEGATIVE (NEGATIVE); PROTEIN NEGATIVE (NEGATIVE); UROBILINOGEN NORMAL (NORMAL)
[2017-06-20 05:00] VITALS: BP 130/45
[2017-06-20 07:40] LABS: BASOPHILS 0.2 % (0-2); EOSINOPHILS 1.1 % (0-7); HEMATOCRIT 37.9 % (36.0-48.0); HEMOGLOBIN 12.9 g/dL (12-16); IMMATURE GRANULOCYTES 0.1 % (0-5); LYMPHOCYTES 18.9 % (15-50); MCH 30.4 pg (26.0-34.0); MCV 89.2 fL (80.0-100.0); MEAN PLATELET VOLUME 9.9 fL (7.4-10.4); NEUTROPHILS 66.7 % (40-80); PLATELET COUNT 157 10x3/uL (130-400); RBC 4.25 10x6/uL (4.00-5.40); RDW 13.7 % (11.5-14.5)
[2017-06-20 07:49] LABS: CALCIUM 8.6 mg/dL (8.5-10.1)
[2017-06-20 08:48] VITALS: BP 124/36
== END 2017-06-20 12:33 | disposition home or self-care (01) ==
LOC: D.ER 14:29 → D.M2 16:47 → D.EDHOLD 16:47 → OBSVTIME 16:47 → D.M2 20:07 → D.CLR 06-20 10:28
PROVIDERS: Emergency Medicine; Internal Medicine Interventional Cardiology
DX: I25.110 Atherosclerotic heart disease of native coronary artery with unstable angina pectoris (principal); Z95.5 Presence of coronary angioplasty implant and graft; I10 Essential (primary) hypertension; E78.5 Hyperlipidemia, unspecified; I73.9 Peripheral vascular disease, unspecified